=== PATIENT | male | born 1985 | race Two or more races ===

== ENCOUNTER 2019-03-06 22:20 | Emergency (ER) | payer SELFPAY ==
[~2019-03-06] VITALS: Ht 170.2 cm; Wt 81.6 kg
--- NOTE | 2019-03-06 23:18 | PHYS DOC ---
Past Medical History Alcohol Use: Occasionally Drug Use: None (ARJEEV CISSE APRN) Adult General Chief Complaint Chief Complaint: UPPER EXTREMITY PAIN HPI HPI Patient is a 40 year old male who presents with left arm pain. Patient was playing soccer around 10 PM and fell. Patient is 10 out of 10 sharp pain, no interventions prior to arrival. (RAJEEV CISSE APRN) Review of Systems Review of Systems Constitutional: Denies fever or chills [] Eyes: Denies change in visual acuity, redness, or eye pain [] HENT: Denies nasal congestion or sore throat [] Respiratory: Denies cough or shortness of breath [] Cardiovascular: No additional information not addressed in HPI [] GI: Denies abdominal pain, nausea, vomiting, bloody stools or diarrhea [] : Denies dysuria or hematuria [] Musculoskeletal: Denies back pain but reports L upper arm pain. Integument: Denies rash or skin lesions [] Neurologic: Denies headache, focal weakness or sensory changes [] Endocrine: Denies polyuria or polydipsia [] Complete systems were reviewed and found to be within normal limits, except as documented in this note. (RAJEEV CISSE APRN) Current Medications Current Medications Current Medications Medications (Trade) Dose Ordered Sig/Jesus Start Time Stop Time Status Last Admin Dose Admin Ketamine HCl (Ketamine) 82 mg 1X ONCE 03/07/19 01:00 03/07/19 01:01 DC 03/07/19 00:33 82 MG Morphine Sulfate (Morphine Sulfate) 10 mg 1X ONCE 03/06/19 23:30 03/06/19 23:31 DC 03/06/19 23:23 10 MG Ondansetron HCl (Zofran Odt) 4 mg 1X ONCE 03/06/19 23:30 03/06/19 23:31 DC 03/06/19 23:22 4 MG Sodium Chloride 1,000 ml @ 1,000 mls/hr 1X ONCE 03/07/19 01:00 03/07/19 01:59 03/07/19 00:32 1,000 MLS/HR (PIERO ELIAS DO) Allergies Allergies Allergies Coded Allergies Type Severity Reaction Last Updated Verified No Known Drug Allergies 03/06/19 No (PIERO ELIAS DO) Physical Exam Physical Exam Constitutional: Well developed, well nourished, no acute distress, non-toxic appearance. [] HENT: Normocephalic, atraumatic, bilateral external ears normal, oropharynx moist, no oral exudates, nose normal. [] Eyes: PERRLA, EOMI, conjunctiva normal, no discharge. [] Neck: Normal range of motion, no tenderness, supple, no stridor. [] Cardiovascular:Heart rate regular rhythm, no murmur [] Lungs & Thorax: Bilateral breath sounds clear to auscultation [] Abdomen: Bowel sounds normal, soft, no tenderness, no masses, no pulsatile masses. [] Skin: Warm, dry, no erythema, no rash. [] Back: No tenderness, no CVA tenderness. [] Extremities: No tenderness, no cyanosis, no clubbing, ROM intact, no edema. [] Neurologic: Alert and oriented X 3, normal motor function, normal sensory function, no focal deficits noted. [] Psychologic: Affect normal, judgement normal, mood normal. [] (RAJEEV CISSE APRN) Current Patient Data Vital Signs Vital Signs Date Time Temp Pulse Resp B/P (MAP) Pulse Ox O2 Delivery O2 Flow Rate FiO2 03/06/19 23:23 Room Air 03/06/19 22:54 99.0 86 24 116/62 (80) 99 99.0 (PIERO ELIAS DO) EKG EKG [] (RAJEEV CISSE APRN) Radiology/Procedures Radiology/Procedures []PATIENT: NIMESH LARIOSOUNT: [id number]#: [id number] : 12/03/1978 LOCATION: ER AGE: 40 SEX: M EXAM STATUS: REG ER ORD. PHYSICIAN: RAJEEV CISSE APRN REASON: trauma PROCEDURE: ELBOW LEFT 2V Left elbow 2 views. HISTORY: Trauma 2 views were taken of the left elbow. There is a dislocation of the elbow. There is a small fracture off the tip of the olecranon process. There is possible fracture of the capitellum with irregularity. Radius and ulna are both dislocated. IMPRESSION: 1. Dislocation at the elbow. 2. Tiny fracture at the tip of the olecranon process. 3. Probable fact fracture capitellum of the distal humerus. Electronically signed by: Joseph Fan MD (03/06/2019 11:57 PM) [facility] (RAJEEV CISSE APRN) Radiology/Procedures Post reduction elbow left x-ray: Reduced anatomical position as interpreted by me (PIERO ELIAS DO) Course & Med Decision Making Course & Med Decision Making Pertinent Labs and Imaging studies reviewed. (See chart for details) Will get x-ray and give medication. Patient had a dislocated. Discussed with Dr. Elias who will reduce elbow. (RAJEEV CISSE APRN) Course & Med Decision Making Procedure: Procedural sedation/left elbow reduction Informed consent was obtained then the patient was given 1 mg/kg of ketamine IV with excellent sedation. Then using axial traction with pressure at the L a can on followed by flexion the elbow was easily reduced. A posterior splint was placed by me after splint placement the patient was neurovascularly intact with cap refill less than 2 seconds. The patient recovered from sedation very well. (PIERO ELIAS DO) Dragon Disclaimer Dragon Disclaimer This electronic medical record was generated, in whole or in part, using a voice recognition dictation system. (RAJEEV CISSE APRN) Departure Departure Impression: Primary Impression: Dislocation of left elbow Disposition: HOME, SELF-CARE Condition: IMPROVED Referrals: NO PCP (PCP) BLANKA ROBERT MD, Dr. is an orthopedic surgeon. Please call his office first thing tomorrow to schedule an appointment. Patient Instructions: Elbow Dislocation, Elbow Dislocation with [facility]hab[facility] Additional Instructions: Follow with Dr. Robert. Return to emergency department with any new or concerning symptoms Scripts Hydrocodone/Apap 5-325 (NORCO 5-325 TABLET) 1 Each Tablet 1 TAB PO PRN Q6HRS PRN for PAIN, #20 TAB 0 Refills Prov: PIERO ELIAS DO 03/07/19 Problem Qualifiers Primary Impression: Dislocation of left elbow Encounter type: initial encounter Qualified Codes: S53.105A - Unspecified dislocation of left ulnohumeral joint, initial encounter RAJEEV CISSE APRN Mar 06, 2019 23:18 PIERO ELIAS DO Mar 07, 2019 01:17
[2019-03-06] MEDS ORDERED: MORPHINE SULFATE 10 MG/ML VIAL. IM ONE (23:30)
[2019-03-06] MEDS ORDERED: ONDANSETRON ODT 4 MG TAB.RAPDIS. PO ONE (23:30)
--- NOTE | 2019-03-07 | RAD ---
Left elbow 2 views. HISTORY: Trauma 2 views were taken of the left elbow. There is a dislocation of the elbow. There is a small fracture off the tip of the olecranon process. There is possible fracture of the capitellum with irregularity. Radius and ulna are both dislocated. IMPRESSION: 1. Dislocation at the elbow. 2. Tiny fracture at the tip of the olecranon process. 3. Probable fact fracture capitellum of the distal humerus. Electronically signed by: Joseph Fan MD (03/06/2019 11:57 PM) [facility]
--- NOTE | 2019-03-07 00:01 | RAD ---
Left humerus 2 views. HISTORY: Trauma 2 views were taken of the left humerus. There is a dislocation at the elbow. There is a probable fracture at the capitellum of the distal humerus. No other humerus fracture is noted. IMPRESSION: 1. Irregularity of the capitellum possible fracture. 2. Dislocation at the elbow. Electronically signed by: Joseph Fan MD (03/06/2019 11:58 PM) [facility]
[2019-03-07 00:35] VITALS: BP 147/90
[2019-03-07] MEDS ORDERED: KETAMINE HCL IN NACL, ISO-OSM 50 MG/5 ML SYRINGE IV ONE (01:00)
[2019-03-07] MEDS ORDERED: IV NORMAL SALINE 1000ML BAG 1,000 ML IV ONE (01:00)
[2019-03-07] MEDS ORDERED: HYDR-3164 PO (01:16)
[2019-03-07 02:00] VITALS: BP 125/78
--- NOTE | 2019-03-07 07:47 | RAD ---
Examination: ELBOW LEFT 2V History: Left elbow reduction Comparison/Correlation: Left elbow 2 view x-ray exam of 02/04/2019 Findings: Frontal and lateral views of the left elbow were obtained. Splint material is noted along the posterolateral aspect of the left elbow. Reduction of elbow joint dislocation is noted in the interval. Fracture fragment along the lateral, nonarticular aspect of the lateral humeral condyle appears to be present. Fracture of the tip of the olecranon process described on the previous exam is not currently delineated likely due to overlapping anatomic structures. Impression: Interval reduction of the elbow joint dislocation seen on the prior exam. Nondisplaced fracture involvement of the lateral aspect of the lateral humeral condyle appears to be present. Electronically signed by: Hans Linton MD (03/07/2019 7:43 AM) [facility]
== END 2019-03-07 02:10 | disposition home or self-care (01) ==
LOC: EDBD → ER 22:20
DX: S53.145A Lateral dislocation of left ulnohumeral joint, initial encounter (principal); W18.39XA Other fall on same level, initial encounter; Y93.66 Activity, soccer; Y92.89 Other specified places as the place of occurrence of the external cause; Y99.8 Other external cause status
CPT/HCPCS: 24600; 73060; 73070; 99285; J2270; J7030; Q0162; 24640

== ENCOUNTER 2019-03-09 18:07 | Emergency (ER) | payer SELFPAY ==
[~2019-03-09] VITALS: Ht 167.6 cm; Wt 81.6 kg
[~2019-03-09 18:07] MED LIST: HYDR-3164 PO
[2019-03-09 18:21] VITALS: BP 123/65
--- NOTE | 2019-03-09 19:05 | PHYS DOC ---
Past Medical History Past Medical History: No Pertinent History Past Surgical History: No Surgical History Alcohol Use: Occasionally Drug Use: None Adult General Chief Complaint Chief Complaint: UPPER EXTREMITY SWELLING HPI HPI Patient is a 40 year old [f__sex] who presents with [] Review of Systems Review of Systems Constitutional: Denies fever or chills [] Eyes: Denies change in visual acuity, redness, or eye pain [] HENT: Denies nasal congestion or sore throat [] Respiratory: Denies cough or shortness of breath [] Cardiovascular: No additional information not addressed in HPI [] GI: Denies abdominal pain, nausea, vomiting, bloody stools or diarrhea [] : Denies dysuria or hematuria [] Musculoskeletal: Denies back pain or joint pain [] Integument: Denies rash or skin lesions [] Neurologic: Denies headache, focal weakness or sensory changes [] Endocrine: Denies polyuria or polydipsia [] All other systems were reviewed and found to be within normal limits, except as documented in this note. Current Medications Current Medications Current Medications Medications (Trade) Dose Ordered Sig/Jesus Start Time Stop Time Status Last Admin Dose Admin Albuterol/ Ipratropium (Duoneb) 3 ml 1X ONCE 03/09/19 19:15 03/09/19 19:16 Cancel Dexamethasone Sodium Phosphate (Decadron) 10 mg 1X ONCE 03/09/19 19:15 03/09/19 19:16 Cancel Fentanyl Citrate (Fentanyl 2ml Vial) 75 mcg 1X ONCE 03/09/19 19:15 03/09/19 19:16 Cancel Allergies Allergies Allergies Coded Allergies Type Severity Reaction Last Updated Verified No Known Drug Allergies 03/06/19 No Physical Exam Physical Exam Constitutional: Well developed, well nourished, no acute distress, non-toxic appearance. [] HENT: Normocephalic, atraumatic, bilateral external ears normal, oropharynx moist, no oral exudates, nose normal. [] Eyes: PERRLA, EOMI, conjunctiva normal, no discharge. [] Neck: Normal range of motion, no tenderness, supple, no stridor. [] Cardiovascular:Heart rate regular rhythm, no murmur [] Lungs & Thorax: Bilateral breath sounds clear to auscultation [] Abdomen: Bowel sounds normal, soft, no tenderness, no masses, no pulsatile masses. [] Skin: Warm, dry, no erythema, no rash. [] Back: No tenderness, no CVA tenderness. [] Extremities: No tenderness, no cyanosis, no clubbing, ROM intact, no edema. [] Neurologic: Alert and oriented X 3, normal motor function, normal sensory function, no focal deficits noted. [] Psychologic: Affect normal, judgement normal, mood normal. [] Current Patient Data Vital Signs Vital Signs Date Time Temp Pulse Resp B/P (MAP) Pulse Ox O2 Delivery O2 Flow Rate FiO2 03/09/19 18:21 98.5 71 20 123/65 (84) 100 Room Air 98.5 EKG EKG [] Radiology/Procedures Radiology/Procedures [] Course & Med Decision Making Course & Med Decision Making Pertinent Labs and Imaging studies reviewed. (See chart for details) [] Dragon Disclaimer Dragon Disclaimer This electronic medical record was generated, in whole or in part, using a voice recognition dictation system. Departure Departure Impression: Primary Impression: Hematoma Disposition: 01 HOME, SELF-CARE Condition: STABLE Referrals: NO PCP (PCP) BLANKA ALMANZA MD Patient Instructions: Elbow Dislocation, [id number], Hematoma, [id number] Additional Instructions: ICE area 20 min on then leave off for next 20 mins as needed for next few days. RAJEEV SARAVIA DO Mar 09, 2019 19:05
[2019-03-09] MEDS ORDERED: IPRATRPIUM/ALBUTEROL 0.5/2.5MG 3 ML NEBU. NEB ONE (19:15)
[2019-03-09] MEDS ORDERED: fentaNYL PF VIAL 100 MCG/2 ML VIAL IV ONE (19:15)
[2019-03-09] MEDS ORDERED: DEXAMETHASONE SOD PHOS 20 MG/5 ML VIAL. IV ONE (19:15)
--- NOTE | 2019-03-09 19:26 | RAD ---
Left elbow AP and lateral views. HISTORY: Swelling, bruising 2 views were taken of the left elbow. Elbow remains in good position. There is no new evidence of a fracture. There is a posterior splint. IMPRESSION: 1. Elbow remains in good position. Electronically signed by: Joseph Fan MD (03/09/2019 7:23 PM) [facility]
== END 2019-03-09 19:40 | disposition home or self-care (01) ==
LOC: ER 18:07 → EDBD 18:07 → ER 19:40
DX: S40.022D Contusion of left upper arm, subsequent encounter (principal); W18.39XD Other fall on same level, subsequent encounter
CPT/HCPCS: 73070; 99284